=== PATIENT | male | born 1950 | race Two or more races ===

== ENCOUNTER 2019-02-10 07:51 | Emergency (ER) | payer MEDICARE, OTHER ==
[2019-02-10 08:45] LABS: Basophils # (auto) 0 uL; Basophils % (auto) 0.6 % (0.0-2.0); Eosinophils # (auto) 0.2 uL; Eosinophils % (auto) 2.3 % (0.0-7.0); Hematocrit 48.2 % (41.0-53.0); Hemoglobin 16.1 g/dL (13.5-17.5); Lymphocytes # (auto) 1.3 uL; Lymphocytes % (auto) 17.4 % (10.0-50.0); Mean Corpuscular Hemoglobin 28.4 pg (28.0-32.0); Mean Corpuscular Hgb Conc. 33.5 g/dL (32.0-36.0); Mean Corpuscular Volume 84.6 fL (80.0-100.0); Monocytes # (auto) 0.4 uL; Monocytes % (auto) 5.7 % (0.0-12.0); Neutrophils # (auto) 5.4 uL; Platelet Count (auto) 259 10^3/uL (140-450); Red Blood Cells 5.69 10^6/uL (4.5-5.90); Red Cell Distribution Width 14.2 % (11.8-14.3); White Blood Cell 7.3 10^3/uL (4.4-10.8)
[2019-02-10 09:13] LABS: Albumin 3.6 g/dL (3.4-5.0); Anion Gap 8 (5-15); Blood Urea Nitrogen 19 mg/dL (7-18); Calcium 8.9 mg/dL (8.5-10.1); Carbon Dioxide 24 mmol/L (21-32); Chloride 106 mmol/L (98-107); Glucose 392 mg/dL (74-106); Magnesium 2.4 mg/dL (1.6-2.6); Sodium 138 mmol/L (136-145)
[2019-02-10 09:19] LABS: Alanine Aminotransferase 27 U/L (16-61); Alkaline Phosphatase 135 U/L (45-117); Aspartate Aminotransferase 13 U/L (15-37); BUN/Creatinine Ratio 24.4; Bilirubin, Total 0.3 mg/dL (0.2-1.0); GFR African American 128 mL/min; GFR Non-African American 106 mL/min
[2019-02-10 09:28] LABS: Urine Bacteria NONE SEEN /hpf (None Seen); Urine Blood 1+ /uL (Negative); Urine Specific Gravity 1.036 (1.001-1.035); Urine WBC <1 /hpf (0 - 3)
[2019-02-10] MEDS ORDERED: METO10TA3 PO (12:53)
[2019-02-10] MEDS ORDERED: BENA40TA7 PO (12:53)
[2019-02-10] MEDS ORDERED: GLIM1TAB2 PO (12:53)
[2019-02-10] MEDS ORDERED: HYDR25TA4 PO (12:53)
[2019-02-10] MEDS ORDERED: AMLO10TA12 PO (12:53)
[2019-02-10] MEDS ORDERED: CARV12.544 PO (12:53)
[2019-02-10] MEDS ORDERED: METF-372 PO (12:53)
[2019-02-10] MEDS ORDERED: GABA300C10 PO (12:53)
[2019-02-10] MEDS ORDERED: INSULIN LISPRO (HUMAN) 100 UNITS/ML ML SC ONE (14:15)
[2019-02-10] MEDS ORDERED: SPIRONOLACTONE 25 MG TAB PO ONE (14:15)
[2019-02-10] MEDS ORDERED: FUROSEMIDE 40 MG/4 ML VIAL IV ONE (14:15)
[2019-02-10] MEDS ORDERED: LABETALOL HCL 5 MG/ML ML 20ML VIAL IV ONE (14:15)
[2019-02-10 16:38] VITALS: BP 130/69
== END 2019-02-10 17:28 | disposition home or self-care (01) ==
LOC: ER 08:00 → EDBD 08:00 → ER 17:28
DX: I10 Essential (primary) hypertension (principal); E11.65 Type 2 diabetes mellitus with hyperglycemia; G81.92 Hemiplegia, unspecified affecting left dominant side; K59.8 Other specified functional intestinal disorders; R09.89 Other specified symptoms and signs involving the circulatory and respiratory systems; E11.9 Type 2 diabetes mellitus without complications; Z86.73 Personal history of transient ischemic attack (TIA), and cerebral infarction without residual deficits
CPT/HCPCS: 36415; 71045; 80053; 81001; 82962; 83735; 83880; 84484; 85025; 93005; 94761; 96372; 96374; 96375; 99284; J1815; J1940